=== PATIENT | male | born 1970 | race Caucasian/White ===

== ENCOUNTER → 2023-12-09 11:42 | Outpatient (REF) | payer OTHER, SELFPAY | LOC: RCS 11:42 | PROVIDERS: ATTENDING PHYSICIAN Nurse Practitioner Psychiatric/Mental Health | DX: F90.9 Attention-deficit hyperactivity disorder, unspecified type (principal) | CPT/HCPCS: 93005 ==

== ENCOUNTER → 2024-04-03 06:35 | Day surgery (SDC) | payer OTHER, SELFPAY | LOC: GI 06:35 | PROVIDERS: ATTENDING PHYSICIAN Internal Medicine Gastroenterology | DX: Z12.11 Encounter for screening for malignant neoplasm of colon (principal); C18.7 Malignant neoplasm of sigmoid colon; K64.0 First degree hemorrhoids; D12.3 Benign neoplasm of transverse colon | CPT/HCPCS: 45385; 45381; 45380; 88305; 88342 ==

== ENCOUNTER → 2024-04-13 14:28 | Outpatient (REF) | payer OTHER, SELFPAY | LOC: HWRAD 14:28 | PROVIDERS: ATTENDING PHYSICIAN Surgery; FAMILY PHYSICIAN Family Medicine | DX: C18.7 Malignant neoplasm of sigmoid colon (principal) | CPT/HCPCS: 71260; 74177; Q9967 ==

== ENCOUNTER 2024-06-01 06:07 | Inpatient (IN) | payer OTHER, SELFPAY ==
[2024-05-28 14:35] VITALS: BMI 43.4
[2024-05-28 15:17] LABS: APTT 35.7 Sec (23.4-35.0)
[2024-05-29 09:41] LABS: Glycohemoglobin (HgbA1c) 5.1 % (4.0-5.6)
[2024-06-01] VITALS (11 sets, daily range): BP systolic 112–133; BP diastolic 63–83; BMI 43.4
[2024-06-01] MEDS: ENTEREG 12 MG PO (06:27)
[2024-06-01] MEDS: HEPARIN 5000 UNITS SC (06:27)
[2024-06-01] MEDS: TYLENOL 1000 MG PO (06:27)
[2024-06-01] MEDS: NORMOSOL-R 1000 IV ×3 (06:43→20:10)
--- NOTE | 2024-06-01 11:32 | W.IMMPOSTOP ---
Surgical Immed Post Op Note
-
Primary Surgeon: Zaid Lindsay MD
Social Media Campaign Manager: ANJANA Ochoa
Pre-op Diagnosis: Sigmoid colon cancer
Post-op Diagnosis: Same
Procedure Performed: Robotic sigmoid colectomy with intracorporeal anastomosis
Anesthesia Type: GET
Specimen / Cultures: Sigmoid colon (suture is proximal)
Estimated Blood Loss: 25cc
Complications: None
Operative Findings: No evidence of metastatic disease
Tumor in the mid sigmoid colon
28mm EEA
Normal leak test
Patient's updated.
Colon Resection
Colon Resection
Operation performed with curative intent: Yes
Tumor Location: Sigmoid Colon
Sigmoid Resection: Inferior Mesenteric
[2024-06-01] MEDS: DILAUDID 0.5 MG IV (12:05)
[2024-06-01] MEDS: TORADOL 15 MG IV ×3 (12:06→23:15)
--- NOTE | 2024-06-01 12:50 | PTCARENOTE ---
Pt received from the PACU via bed. Transport was w/o incident. Pt is AAOx3, HRR, Lungs are decreased and clear. Resp. are easy, Pulse ox is 97%on 2L via nc. Abd round/obese w/ 4 Lap sites and one large incision low abd, all approximated w/ surgi
glue. VSS, Pt is afebrile. Pt instructed on plan of care. Pt verbalized understanding of instructions. Call lizarraga is within reach.
[2024-06-01] MEDS: TYLENOL PO (13:54)
[2024-06-01] MEDS: TYLENOL 650 MG PO ×3 (15:22→23:15)
--- NOTE | 2024-06-01 15:44 | CM ---
Reviewed the chart notes and spoke with the patient at the bedside. Patient resides with his spouse in a two story home with two steps to enter. The patient reports only DME is a CPAP machine. The patient reports no VN or SNF in the past. The
[facility] CM continues to be available to patient/family and is monitoring medical plan for needs at discharge.
Plan: Discharge to home when medically stable. No needs anticipated.
[2024-06-02 03:08] VITALS: BP 114/69
[2024-06-02] MEDS: TYLENOL 650 MG PO ×4 (05:00→16:34)
[2024-06-02] MEDS: TORADOL 15 MG IV ×2 (05:13→12:49)
[2024-06-02 05:17] VITALS: BMI 42.5
[2024-06-02] MEDS: NORMOSOL-R 1000 IV (05:35)
[2024-06-02 07:57] VITALS: BP 117/70
[2024-06-02] MEDS: CRESTOR 5 MG PO (09:17)
[2024-06-02] MEDS: ENTEREG 12 MG PO (09:17)
[2024-06-02] MEDS: PROSCAR 5 MG PO (09:17)
[2024-06-02 10:11] LABS: % Basophils 0.2 % (0-2); % Eosinophils 0.1 % (0-6); % Immature Granulocytes 0.3 % (0-0.5); % Lymphocytes 11.7 % (20.5-51.1); % Monocytes 10.4 % (1.7-9.3); % Neutrophils 77.3 % (42.2-75.2); Absolute Lymphocytes 1.1 10^3/uL (1.2-3.4); Absolute Neutrophils 7.2 10^3/uL (1.4-6.5); Hematocrit 35.9 % (39.0-52.0); Mean Corp Hgb Conc. 36.2 g/dL (33.0-37.0); Mean Corpuscular Hgb 31.9 pg (27.0-31.0); Nucleated Red Blood Cells % 0 % (-); Platelet Count 243 10^3/uL (130-400); Red Blood Cell Count 4.08 10^6/uL (4.70-6.10); Red Cell Dist. Width 12.8 % (11.5-14.5); White Blood Cell Count 9.3 10^3/uL (4.8-10.8)
[2024-06-02 10:29] LABS: Blood Urea Nitrogen 12 mg/dl (9-20); Carbon Dioxide 25 mmol/L (22-30); Chloride 102 mmol/L (98-107); Estimated Creatinine Clearance > 125 ml/min; Glucose 87 mg/dl (70-99); Potassium 4.2 mmol/L (3.5-5.1); Sodium 134 mmol/L (135-145); eGFR > 60.00
[2024-06-02 11:50] VITALS: BP 126/77
--- NOTE | 2024-06-02 14:27 | W.PN.CRS1 ---
Addendum entered and electronically signed by Humphrey Hernandez MD 06/02/24 14:59:
I saw and examined the patient.
The Parts Room Assistant's note was reviewed and I agree with the note.
Comment: Doing excellent. Pain controlled, ambulating, passing flatus and BMs. Kaylee cld. Exam approp. Plan to adv diet, DC gallegos. Potential DC when voiding and kaylee LRD.
Original Note:
Today's Communication / Plan
-
Advance diet
Dispo planning
Assessment/Plan
-
54 yo male with a h/o sigmoid cancer who is POD #1 Robotic sigmoid colectomy with intracorporeal anastomosis
AFVSS
Labs stable post op
+flatus/BM's
--Advance to LRD
--OR path pending
--Multimodal analgesics
--OOB/ambulate
--OR path pending
--Remove galleogs for voiding trial
--Lovenox/SCD's for VTE ppx
Tentative d/c later today vs tomorrow pending diet tolerance
Subjective Data
Subjective Data
Date of Service: June 02, 2024
Patient seen and examined at bedside with Dr. Hernandez. Eager to go home. Notes he has not had any pain. Denies n/v and tolerated clears over the last 24 hours. Passing flatus and having bm's.
Objective Data
-
Vital Signs
Temp Pulse Resp BP Pulse Ox
98.0 F 65 18 126/77 100
06/02/24 11:50 06/02/24 11:50 06/02/24 11:50 06/02/24 11:50 06/02/24 11:50
Intake & Output
06/01/24 06/02/24 06/03/24
06:59 06:59 06:59
Intake Total 2140 / 2140
Output Total 3275 / 3275 650 / 650
Balance -1135 / -1135 -650 / -650
Intake:
Oral fluids 240 / 240
IV fluids (Total) 190 / 1899
normosol 100 / 100
Output:
Urine, Gallegos 1725 / 1725 650 / 650
Urine, Voided 1550 / 1550
Lab Results
06/02/24 09:35
06/02/24 09:35
Physical Exam
-
General: No Acute Distress
HEENT: Grossly Normal
Abdomen: Soft, Non Distended and Non Tender
Skin: Warm and Dry
Incision: Clear, Dry, Intact (derma escobedo to incisions) and No Skin Erythema
[2024-06-02 15:55] VITALS: BP 128/76
--- NOTE | 2024-06-02 16:18 | W.DCSUMMARY ---
Discharge Summary
Discharge Data
Date of Admission: 06/01/24
Date of Discharge: 06/02/24
-
Pending Results: No
Hospital Course
This is a 54 yo male who presented for surgical management of sigmoid colon ca with robotic sigmoid colectomy. He tolerated the procedure well without complication. Diet was able to be advanced and well tolerated post operatively with passage of
stool and flatus prior to discharge. He had good pain control post operatively. He was discharged to home with family for outpatient follow up in the coming weeks.
Discharge Plan
-
Patient Disposition: Home (Routine Discharge)
Discharge Diagnosis/Procedures: robotic sigmoid colectomy
Condition: Good
Diet: Low Fiber
Activity: No strenuous activity
Additional Activity: Do not lift more than 10lbs
Driving Restrictions: Wait until comfortable twisting
Bathing Restrictions: OK to Shower
Wound Care: Wash incisions gently with soap and water. Avoid scrubbing or picking off the glue and allow it to flake off on its own in 2-3 weeks
Activity Restrictions/Additional Instructions:
Call your surgeon if you have worsening abdominal pain, nausea with vomiting or a fever >100.5
Instructions: Low Fiber Diet
Referrals:
Romel Vuong MD [Family Provider] -
Kenny Lindsay MD [Active] - in two to four weeks
Prescriptions:
New
acetaminophen 325 mg tablet
650 mg PO Q4HPRN PRN (Reason: mild pain) Qty: 1 0RF
ibuprofen 200 mg tablet
400 - 600 mg PO Q6HPRN PRN (Reason: moderate pain) Qty: 1 0RF
oxycodone 5 mg tablet
5 mg PO Q4HPRN PRN (Reason: breakthrough/severe pain) Qty: 15 0RF
Continued
dexmethylphenidate 10 mg Tablet
10 mg PO MOTUWETHFR
ondansetron 4 mg Tablet,Disintegrating
4 mg PO PRN PRN (Reason: Nausea)
finasteride 5 mg Tablet
5 mg PO DAILY
rosuvastatin 5 mg Tablet
5 mg PO DAILY
melatonin 5 mg Tablet
5 mg PO HS PRN (Reason: Insomnia)
Wegovy 2.4 mg/0.75 mL Pen Injector
2.4 mg SC QWEEK
Discontinued
metronidazole 500 mg Tablet
500 mg PO PRE OP
neomycin 500 mg Tablet
1 g PO PRE OP
Sutab 1.479-0.188- 0.225 gram Tablet
0 tab PO PER PKG DIR
Discharge Orders:
Discharge Patient (As Directed); Ordered 06/02/24
Ordered By: Teresa Santos
Discharge Date and Time
Print Language: MAURITIAN
== END 2024-06-02 17:23 | disposition home or self-care (01) | DRG 331 ==
LOC: 2 SOUTH 06:07
PROVIDERS: Surgery; ADMITTING PHYSICIAN Surgery; FAMILY PHYSICIAN Family Medicine
PROC: 4A1BXSH Monitoring of Gastrointestinal Vascular Perfusion using Indocyanine Green Dye, External Approach (ICD-10-PCS; 2024-06-01)
PROC: 0DTN4ZZ Resection of Sigmoid Colon, Percutaneous Endoscopic Approach (ICD-10-PCS; 2024-06-01)
PROC: 5A09357 Assistance with Respiratory Ventilation, Less than 24 Consecutive Hours, Continuous Positive Airway Pressure (ICD-10-PCS; 2024-06-01)
PROC: 0DJD8ZZ Inspection of Lower Intestinal Tract, Via Natural or Artificial Opening Endoscopic (ICD-10-PCS; 2024-06-01)
PROC: 8E0W4CZ Robotic Assisted Procedure of Trunk Region, Percutaneous Endoscopic Approach (ICD-10-PCS; 2024-06-01)
DX: C18.7 Malignant neoplasm of sigmoid colon (principal); G47.33 Obstructive sleep apnea (adult) (pediatric); E88.01 Alpha-1-antitrypsin deficiency; Z14.1 Cystic fibrosis carrier
CPT/HCPCS: 88309; 36415; 80048; 83036; 85025; 85610; 85730; 86850; 86900; 86901; 93005; J1335

== ENCOUNTER → 2025-05-10 13:05 | Outpatient (REF) | payer OTHER, SELFPAY | LOC: RAD 13:05 | PROVIDERS: ATTENDING PHYSICIAN Nurse Practitioner Family; FAMILY PHYSICIAN Family Medicine | DX: L03.115 Cellulitis of right lower limb (principal) | CPT/HCPCS: 93971 ==

== ENCOUNTER → 2025-05-11 10:18 | Outpatient (REF) | payer OTHER, SELFPAY ==
[2025-05-11 11:40] LABS: % Basophils 0.4 % (0-2); % Eosinophils 1.3 % (0-6); % Immature Granulocytes 0.3 % (0-0.5); % Lymphocytes 24.3 % (20.5-51.1); % Monocytes 8.3 % (1.7-9.3); % Neutrophils 65.4 % (42.2-75.2); Absolute Eosinophils 0.1 10^3/uL (0-0.7); Absolute Lymphocytes 1.7 10^3/uL (1.2-3.4); Absolute Monocytes 0.6 10^3/uL (0.1-0.6); Absolute Neutrophils 4.6 10^3/uL (1.4-6.5); Hematocrit 41.3 % (39.0-52.0); Hemoglobin 14.3 g/dL (13.0-18.0); Mean Corp Hgb Conc. 34.6 g/dL (33.0-37.0); Mean Corpuscular Hgb 32.1 pg (27.0-31.0); Mean Corpuscular Volume 92.6 fL (80.0-94.0); Mean Platelet Volume 9.9 fL (7.4-10.4); Nucleated Red Blood Cells % 0 % (-); Platelet Count 333 10^3/uL (130-400); Red Blood Cell Count 4.46 10^6/uL (4.70-6.10); Red Cell Dist. Width 12.1 % (11.5-14.5)
[2025-05-11 12:08] LABS: ALT (SGPT) 28 U/L (0-50); AST (SGOT) 24 U/L (17-59); Albumin 4.2 g/dl (3.5-5.0); Alkaline Phosphatase 60 U/L (38-126); Blood Urea Nitrogen 18 mg/dl (9-20); Calcium 9.2 mg/dl (8.4-10.2); Carbon Dioxide 27 mmol/L (22-30); Chloride 107 mmol/L (98-107); Glucose 83 mg/dl (70-99); Potassium 4.7 mmol/L (3.5-5.1); Sodium 141 mmol/L (135-145); Total Bilirubin 0.8 mg/dl (0.2-1.3); Total Protein 7.1 g/dl (6.3-8.2); eGFR > 60.00
[2025-05-11 12:16] LABS: D-Dimer 0.93 ug/mlFEU (0.00-0.50)
[2025-05-11 12:46] LABS: CEA 0.69 ng/ml
== END ==
LOC: REG 10:18
PROVIDERS: ATTENDING PHYSICIAN Nurse Practitioner Family
DX: I80.00 Phlebitis and thrombophlebitis of superficial vessels of unspecified lower extremity (principal); L02.91 Cutaneous abscess, unspecified; Z85.038 Personal history of other malignant neoplasm of large intestine
CPT/HCPCS: 36415; 80053; 82378; 85025; 85379; 86140

== ENCOUNTER → 2025-05-14 14:38 | Outpatient (REF) | payer OTHER, SELFPAY | LOC: RAD 14:38 | PROVIDERS: ATTENDING PHYSICIAN Nurse Practitioner Family; FAMILY PHYSICIAN Family Medicine | DX: I80.00 Phlebitis and thrombophlebitis of superficial vessels of unspecified lower extremity (principal); L02.91 Cutaneous abscess, unspecified | CPT/HCPCS: 73701; Q9967 ==

== ENCOUNTER 2025-07-30 06:02 | Day surgery (SDC) | payer OTHER, SELFPAY ==
[2025-07-30 06:20] VITALS: BP 109/65
[2025-07-30] MEDS: TYLENOL 1000 MG PO (06:24)
[2025-07-30] MEDS: HEPARIN 5000 UNITS SC (06:25)
[2025-07-30] MEDS: NORMOSOL-R/PLASMALYTE-A 1000 IV (06:29)
[2025-07-30 06:31] VITALS: BMI 42.3
--- NOTE | 2025-07-30 06:40 | PTCARENOTE ---
Ring taken by .
--- NOTE | 2025-07-30 08:46 | OR.RPT ---
Operative Report
Operative Report
Primary Surgeon: Mary
Pre-op Diagnosis: Soft tissue mass of right thigh
Post-op Diagnosis: Same
Procedure Performed: Excision of soft tissue mass of right thigh
Anesthesia Type: MAC local
Specimen / Cultures: Right thigh mass
Estimated Blood Loss: 2cc
Complications: None immediate
Operative Findings: Vessel approaching the mass controlled with silk ties superior and inferior
Date of Surgery: 07/30/25
Indications: This 55M developed a symptomatic superior right thigh mass and excisional biopsy was elected.
PROCEDURE: After informed consent was obtained, the patient was marked and then brought to the operative suite and placed supine on the operating table. The patient was sedated, prepped and draped in the usual sterile manner and an adequate local
anesthetic was administered using lidocaine with epinephrine.
An incision was made over the mass with a #15 blade and carried down to the fascia with cautery. The mass was dissected free of surrounding tissue bluntly and with judicious cautery. 2 vessels superior to the mass were isolated, skeletonized, and
controlled with double 2-0 silk ties. The vessels were transected with metzenbaum doroteo. The mass was undermined with blunt dissection and cautery and ultimately dissected free of all surrounding attachments except a single inferior vessel. This
was controlled in similar fashion to the superior vessels and divided. The specimen was passed off the table. The wound was then irrigated with copious sterile saline, and hemostasis was obtained using Bovie electrocautery. The skin was approximated
with 3-0 Vicryl deep dermal interrupted sutures and 4-0 monocryl suture in a subcuticular fashion. Topical skin glue was then applied. All surgical counts were reported as correct.
The patient tolerated the procedure well and was taken to the PACU in stable condition.
== END 2025-07-30 09:30 | disposition home or self-care (01) ==
LOC: SDS 06:02
PROVIDERS: ATTENDING PHYSICIAN Surgery
DX: M79.81 Nontraumatic hematoma of soft tissue (principal); E83.110 Hereditary hemochromatosis; Z79.01 Long term (current) use of anticoagulants
CPT/HCPCS: 27337; 88307

== ENCOUNTER → 2025-08-26 08:39 | Outpatient (REF) | payer OTHER, SELFPAY | LOC: RAD 08:39 | PROVIDERS: ATTENDING PHYSICIAN Surgery; FAMILY PHYSICIAN Family Medicine | DX: I72.9 Aneurysm of unspecified site (principal) | CPT/HCPCS: 70496; 70498; Q9967 ==